=== PATIENT | male | born 1985 | race Caucasian/White ===

== ENCOUNTER 2024-06-20 15:29 | Emergency (ER) | payer SELFPAY ==
[2024-06-20 15:32] VITALS: BP 158/102
[2024-06-20 15:51] LABS: % Basophils 0.6 % (0-2); % Eosinophils 1.7 % (0-6); % Immature Granulocytes 0.3 % (0-0.5); % Lymphocytes 31.9 % (20.5-51.1); % Neutrophils 54.5 % (42.2-75.2); Absolute Basophils 0.1 10^3/uL (0-0.2); Absolute Eosinophils 0.2 10^3/uL (0-0.7); Absolute Neutrophils 5.1 10^3/uL (1.4-6.5); Hematocrit 40.6 % (39.0-52.0); Hemoglobin 13.6 g/dL (13.0-18.0); Mean Corp Hgb Conc. 33.5 g/dL (33.0-37.0); Mean Corpuscular Hgb 28.3 pg (27.0-31.0); Mean Corpuscular Volume 84.4 fL (80.0-94.0); Mean Platelet Volume 10.2 fL (7.4-10.4); Nucleated Red Blood Cells % 0 % (-); Platelet Count 336 10^3/uL (130-400); Red Blood Cell Count 4.81 10^6/uL (4.70-6.10); Red Cell Dist. Width 12.9 % (11.5-14.5); White Blood Cell Count 9.4 10^3/uL (4.8-10.8)
[2024-06-20 16:11] LABS: ALT (SGPT) 27 U/L (0-50); AST (SGOT) 38 U/L (17-59); Albumin 4.7 g/dl (3.5-5.0); Alkaline Phosphatase 107 U/L (38-126); Blood Urea Nitrogen 20 mg/dl (9-20); Calcium 10.1 mg/dl (8.4-10.2); Carbon Dioxide 29 mmol/L (22-30); Chloride 102 mmol/L (98-107); Glucose 102 mg/dl (70-99); Potassium 4.1 mmol/L (3.5-5.1); Sodium 144 mmol/L (135-145); Total Bilirubin 0.3 mg/dl (0.2-1.3); Total Protein 7.4 g/dl (6.3-8.2); eGFR > 60.00
[2024-06-20 16:13] LABS: Troponin I < 0.012 ng/ml
[2024-06-20 17:34] VITALS: BP 150/88
[2024-06-20 18:50] VITALS: BP 142/74
[2024-06-20 19:24] LABS: Troponin I < 0.012 ng/ml
--- NOTE | 2024-06-20 20:01 | ED.GENMED ---
History of Present Illness
General
Chief Complaint: Chest Pain
Source: patient
Exam Limitations: none
Time Seen by Provider: 06/20/24 16:03
Nursing documentation reviewed up to this point in time: agreed with
History of Present Illness
History of Present Illness:
Pateint reports developing sudden onset of chest tightness while walking in his yard. No radiation of tightness. No n/v/d. No prior history of same. Resolved without intervention. Brought to ED by family for eval. Currently asymptomatic.
Past History
Past History
ED Past Medical History: None
ED Past Surgical History: None
Social History
Tobacco: Smoker
Alcohol: Occasional
Drug: None
Review of Systems
Review of Systems
Allergies reviewed?: Yes
All Other Systems: ROS reviewed and negative except as documented in HPI and ROS
Constitutional: Reports no symptoms
EENT: Reports no symptoms
Respiratory: Reports no symptoms
Cardiac: Reports chest pain
ABD/GI: Reports no symptoms
: Reports no symptoms
Musculoskeletal: Reports no symptoms
Skin: Reports no symptoms
Neurological: Reports no symptoms
Psychiatric: Reports no symptoms
Phy Exam
General Physical Exam
General Presentation: well appearing and no apparent distress
General age: appears stated age
General Skin: warm and dry
General Habitus: normal
General Mental: alert
Cardiovascular Exam
Cardiovascular Exam: regular rate/rhythm and no edema
Pulmonary Exam
Pulmonary Exam: lungs clear and no respiratory distress
Musculoskeletal Exam
Musculoskeletal Exam: full ROM and neuro vasc intact
Skin Exam
Skin Exam: normal color, warm/dry and no rash
Psychiatric Exam
Psychiatric Exam: normal mood/affect
Scores
Heart Score for Chest Pain Patients
STEMI patient?: No
History: Slightly or Non-Suspicious
ECG: Normal
Age: </= 45 years
Risk Factors: 1 or 2 Risk Factors
Troponin: </= Normal Limit
Heart Score for Chest Pain Patients: 1
Heart Score Risk: 2.5% MACE over next 6 weeks
Course
Orders/Labs/Results
Orders:
Orders
06/20/24 15:32
Electrocardiogram (*1) Urgent
Reason for Study: Chest Pain
EKG- Treatment ONCE
06/20/24 15:41
Complete Blood Count/With Diff Urgent
Comprehensive Metabolic Panel Urgent
Troponin I Urgent
06/20/24 16:11
CR Chest - 2 Views Urgent
Comment:
Reason For Exam: chest pain
06/20/24 17:02
EKG- Treatment ONCE
06/20/24 18:40
Electrocardiogram (*1) Urgent
Reason for Study: Chest Pain
06/20/24 18:41
Troponin I Urgent
Abnormal Lab Results
06/20/24
15:41
Absolute Monos (auto) 1.0 H 10^3/uL
(0.1-0.6)
Monocytes % 11.0 H %
(1.7-9.3)
Glucose 102 H mg/dl
(70-99)
06/20/24 15:41
06/20/24 15:41
Vital Signs
Initial and Last Documented VS:
Initial Vital Signs
Temp Pulse Resp BP Pulse Ox
97.8 F 73 16 158/102 100
06/20/24 15:32 06/20/24 15:32 06/20/24 15:32 06/20/24 15:32 06/20/24 15:32
Last Documented Vital Signs
Temp Pulse Resp BP Pulse Ox
97.8 F 72 18 142/74 99
06/20/24 15:32 06/20/24 18:50 06/20/24 18:50 06/20/24 18:50 06/20/24 18:50
*Radiology
Radiology exam reviewed: radiology read reviewed
*Pulse Oximetry
Patient hypoxic: no
*EKG
Interpretation: normal
Comparison EKG: no comparison EKG present
Rate: normal
Rhythm: sinus
*Critical Care Note
Total Time (30-74mins, 75-104mins- exclusive of procedures): Not Applicable
Update Note
Update Note:
Patient remains asymptomatic in dept. Labs CXR EKG reviewed. No findings to explain his symptoms. He is discharged home and will follow upw tih PCP. Given instructions on s/s to return to eD and he is agreeable to plan.
ED Attending Note
-
Portions of this chart may have been created with voice recognition software.� Occasional wrong word or��sound alike� substitutions may have occurred due to the inherent limitations of voice recognition software.
Discharge Plan
Departure
Patient Disposition: Home (Routine Discharge)
Date of Disposition: 06/20/24
Time of Disposition: 19:27
Patient with high blood pressure during this ER visit?: No
Condition: Good
Covid-19: Not Applicable
Discharge Problem:
Chest pain
Instructions: Chest Pain That Is Not Caused by the Heart (DC), Chest Pain PCP Follow Up
Referrals:
NONE,* [Family Provider] -
Activity Restrictions/Additional Instructions:
Follow up with your family doctor in 1-2 days. Return to the emergency department immediately for any changes in/worsening of your symptoms.
Interventions
Interventions:
*Risk Screen - Suicide Last Done: 06/20/24 16:05
*General Assessment Last Done: 06/20/24 16:05
*Neglect/Abuse Screening Last Done: 06/20/24 16:05
ED- Fall Risk Assessment Last Done: 06/20/24 16:05
*Nursing Disposition Last Done: 06/20/24 19:38
ED- Cardiac Assessment Last Done: 06/20/24 16:05
Discharge Date and Time
Discharge Date/Time: 06/20/24 19:38
Print Language: [facility]
== END 2024-06-20 19:38 | disposition home or self-care (01) ==
LOC: EMR 15:29
PROVIDERS: Nurse Practitioner; EMERGENCY PHYSICIAN Emergency Medicine
DX: R07.89 Other chest pain (principal); F17.200 Nicotine dependence, unspecified, uncomplicated
CPT/HCPCS: 99285; 71046; 80053; 84484; 85025; 93005